=== PATIENT | male | born 1995 | race Two or more races ===

== ENCOUNTER 2016-06-18 05:12 | Emergency (ER) | payer OTHER ==
[2016-06-18] MEDS ORDERED: Ibuprofen TAB* 600 MG PO ONE (05:17)
[2016-06-18 06:30] LABS: Hematocrit 43 % (42-52); Mean Corpuscular HGB Conc 33 g/dl (31-36); Mean Corpuscular Hemoglobin 28 pg (27-31); Mean Corpuscular Volume 84 fL (80-94); Mean Platelet Volume 8 um3 (7.4-10.4); Red Blood Count 5.06 10^6/ul (4.0-5.4); Red Cell Distribution Width 13 % (10.5-15); White Blood Count 8.3 10^3/ul (3.5-10.8)
[2016-06-18 06:42] LABS: Albumin 4.3 g/dL (3.2-5.2); BUN/Creatinine Ratio 21.1 (8-20); Calcium 9.5 mg/dL (8.6-10.3); EGFR African American 131.3 (>60); EGFR Non-African American 102.1 (>60); Globulin 2.9 g/dL (2-4); Potassium 3.7 mmol/L (3.5-5.0); Total Bilirubin 0.4 mg/dL (0.2-1.0); Total Protein 7.2 g/dL (6.4-8.9)
--- NOTE | 2016-06-18 07:16 | ED ---
Bryan Ireland Matthew, scribed for Yovani Chung on 06/18/16 at 0603 . HPI Chest Pain - HPI Summary HPI Summary: A 20 y/o male presents to the ED with mid-sternal and left sided chest pain since 04:50. The patient states that he smoked marijuana just prior to the start of the chest pain. Hes concerned that the marijuana may have been laced with another drug. The chest pain is described as tightness. Associated symptoms include lightheadedness; however, the patient states that he has not eaten or drank much today. He denies nausea, vomiting, dizziness, and SOB. His chest pain worsens with deep breaths. FHx of CVA. No cocaine use noted. - History of Current Complaint Chief Complaint: EDChestWallPain Time Seen by Provider: 06/18/16 05:15 Hx Obtained From: Patient Onset/Duration: Started Hours Ago, Atraumatic, Still Present Timing: Constant Initial Severity: Moderate Current Severity: Moderate Pain Intensity: 4 Pain Scale Used: 0-10 Numeric Chest Pain Location: Mid Sternal, Left Lateral Chest Pain Radiates: No Character: Tightness Aggravating Factor(s): Deep Breaths, Other: - Touch Associated Signs and Symptoms: Positive: Chest Pain, Lightheadedness. Negative : Dizziness, Shortness of Breath, Nausea, Vomiting - Allergy/Home Medications Allergies/Adverse Reactions: Allergies Allergy/AdvReac Type Severity Reaction Status Date / Time No Known Allergies Allergy Verified 06/18/16 05:18 Home Medications: Home Medications NK [No Home Medications Reported] 06/18/16 [History Confirmed 06/18/16] PMH/Surg Hx/FS Hx/Imm Hx Respiratory History: Denies: Hx Asthma, Hx Chronic Obstructive Pulmonary Disease (COPD) Infectious Disease History: No Infectious Disease History: Denies: Traveled Outside the [place] in Last 30 Days - Family History Family History: FHx of CVA - Social History Alcohol Use: Rare Substance Use Type: Reports: Marijuana Substance Use Comment - Amount & Last Used: today Smoking Status (MU): Never Smoked Tobacco Review of Systems Constitutional: Negative Eyes: Negative ENT: Negative Positive: Chest Pain - mid-sternal and left sided Respiratory: Negative Negative: Shortness Of Breath Gastrointestinal: Negative Negative: Vomiting, Nausea Genitourinary: Negative Musculoskeletal: Negative Skin: Negative Neurological: Other - lightheadedness Psychological: Normal All Other Systems Reviewed And Are Negative: Yes Physical Exam Triage Information Reviewed: Yes Vital Signs On Initial Exam: Initial Vitals Temp Pulse Resp BP Pulse Ox 99.3 F 84 16 143/69 99 06/18/16 05:18 06/18/16 05:18 06/18/16 05:18 06/18/16 05:18 06/18/16 05:18 Vital Signs Reviewed: Yes Appearance: Positive: Well-Appearing, No Pain Distress Skin: Positive: Warm, Skin Color Reflects Adequate Perfusion, Dry Head/Face: Positive: Normal Head/Face Inspection ENT: Positive: Normal ENT inspection Neck: Positive: Supple, Nontender Respiratory/Lung Sounds: Positive: Clear to Auscultation, Breath Sounds Present Cardiovascular: Positive: RRR, Pulses are Symmetrical in both Upper and Lower Extremities Abdomen Description: Positive: Nontender, Soft Bowel Sounds: Positive: Present Musculoskeletal: Positive: Other - Nausea Vomiting Dizziness SOB Associated Lightheadedness Tenderness over the left chest Neurological: Positive: Normal, Sensory/Motor Intact, Alert, Oriented to Person Place, Time Psychiatric: Positive: Affect/Mood Appropriate - [place] Coma Scale Coma Scale Total: 15 Diagnostics - Vital Signs Vital Signs Temp Pulse Resp BP Pulse Ox 06/18/16 05:18 99.3 F 84 16 143/69 99 - Laboratory Result Diagrams: 06/18/16 06:15 06/18/16 06:15 Lab Statement: Any lab studies that have been ordered have been reviewed, and results considered in the medical decision making process. - Radiology CXR Xray Interpretation: No Acute Changes Radiology Interpretation Completed By: ED Physician - EKG 05:15 Cardiac Rate: NL - 67 bpm EKG Rhythm: Sinus Rhythm EKG Interpretation: No Acute Changes Chest Pain Course/Dx - Course Assessment/Plan: The patient is sign out to Dr. Mccall pending toxicology and second troponin. - Diagnoses Provider Diagnoses: Chest pain, Substance abuse Discharge - Discharge Plan Condition: Stable Disposition: OTHER Discharge Disposition Comment: The patient is sign out to Dr. Mccall pending toxicology and 2nd troponin. The documentation as recorded by the Bryan tran Matthew accurately reflects the service I personally performed and the decisions made by , Yovani Chung.
[2016-06-18 08:50] LABS: Benzodiazepine Urine Screen None Detected (None Detect)
[2016-06-18 09:01] VITALS: BP 136/62
--- NOTE | 2016-06-18 10:37 | RAD ---
INDICATION: Sternal chest pain and pressure. Dyspnea. Fever. Marijuana use. Recurrent bronchitis. COMPARISON: None. TECHNIQUE: Dual energy PA and routine lateral views of the chest were obtained. REPORT: Clear lungs and pleural spaces. Negative for pneumothorax. The heart, pulmonary vasculature, and mediastinal contours are unremarkable. Unremarkable osseous structures and soft tissue contours. IMPRESSION: No evidence for acute intrathoracic disease.
--- NOTE | 2016-06-18 13:47 | ED ---
Tremaine Ireland Rebecca, scribed for Trevor Mccall MD on 06/18/16 at 0755 . Progress - Progress Note Progress Note: This pt was signed out by Valentín Chung to check for urine toxicology. Urine toxicology is only positive for marijuana. The 2nd EKG showed sinus bradycardia without any ST elevations so Dr. Chung recommended for pt to be D/C to home with followup with PCP. The pt at this time is asymptomatic, does not have any pain and he has no other complaints. Therefore, pt was D/C to home with a followup with PCP. Pt is hemodynamically stable and AxOx3. He was recommend to return to ED if his sx return or develops any cough, fever, chills, SOB, or dizziness. He understands and agrees.] Physical exam before discharged: VITAL SIGNS: Reviewed. GENERAL: Patient is a well developed and nourished male who is lying comfortable in the stretcher. Patient is not in any acute respiratory distress. HEAD AND FACE: No signs of trauma. No ecchymosis, hematomas or skull depressions. No sinus tenderness. EYES: PERRLA, EOMI x 2, No injected conjunctiva, no nystagmus. EARS: Hearing grossly intact. Ear canals and tympanic membranes are within normal limits. MOUTH: Oropharynx within normal limits. NECK: Supple, trachea is midline, no adenopathy, no JVD, no carotid bruit, no c- spine tenderness, neck with full ROM. CHEST: Symmetric, no tenderness at palpation LUNGS: Clear to auscultation bilaterally. No wheezing or crackles. CVS: Regular rate and rhythm, S1 and S2 present, no murmurs or gallops appreciated. ABDOMEN: Soft, non-tender. No signs of distention. No rebound no guarding, and no masses palpated. Bowel sounds are normal. EXTREMITIES: FROM in all major joints, no edema, no cyanosis or clubbing. NEURO: Alert and oriented x 3. No acute neurological deficits. Speech is normal and follows commands. SKIN: Dry and warm I discussed all the findings and test results with the patient. Patient was instructed to return to the emergency room immediately if any of the symptoms return or worsens. Plan of care was discussed with the patient and understands and agrees. All questions were answered at patient satisfaction. There were no further complaints or concerns. Lung exam before discharge: CTA B/L. Good air exchange. No wheezing or crackles heard. CVS: S1 and S2 present. No murmurs appreciated. Patient is alert and oriented x 3. Patient is hemodynamically stable. 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
== END 2016-06-18 09:00 | disposition home or self-care (01) ==
LOC: ED 05:12
DX: R07.9 Chest pain, unspecified (principal); F12.10 Cannabis abuse, uncomplicated
CPT/HCPCS: 36415; 71020; 80053; 80307; 84484; 85025; 85610; 85730; 93005; 99283; A9270-GY